=== PATIENT | female | born 1985 | race Two or more races ===

== ENCOUNTER 2024-04-29 17:00 | Emergency (ER) | payer OTHER ==
[~2024-04-29] VITALS: Ht 180.3 cm; Wt 97.5 kg
[2024-04-29 17:30] VITALS: BP 169/113; TEMP 99.4; O2SAT 98
[2024-04-29] MEDS: KETOROLAC TROMETHAMINE INJ 30 MG/ML VIAL IM ONE (18:00)
[2024-04-29] MEDS: GUAIFENESIN/D-METHORPHAN HB 5 ML UDC PO ONE (18:00)
[2024-04-29 18:47] LABS: PREGNANCY TEST URINE QUAL NEGATIVE (NEGATIVE)
[2024-04-29] MEDS ORDERED: GUAIFENESIN/CODEINE 10 ML UDC ONE (19:00)
[2024-04-29] MEDS ORDERED: KETOROLAC TROMETHAMINE INJ 30 MG/ML VIAL ONE (19:00)
[2024-04-29] MEDS ORDERED: GUAIFENESIN/D-METHORPHAN HB 5 ML UDC ONE (19:02)
[2024-04-29] MEDS ORDERED: AZIT500T4 PO (19:14)
[2024-04-29] MEDS ORDERED: GUAI1TBM19 PO (19:14)
== END 2024-04-29 19:43 | disposition home or self-care (01) ==
LOC: ER 17:25
DX: J40 Bronchitis, not specified as acute or chronic (principal); F17.200 Nicotine dependence, unspecified, uncomplicated; M54.9 Dorsalgia, unspecified; R53.83 Other fatigue; R07.9 Chest pain, unspecified; R06.00 Dyspnea, unspecified; Z20.822 Contact with and (suspected) exposure to COVID-19
CPT/HCPCS: 99284; 71045; 87426; 96372; 84703; J1885

== ENCOUNTER 2024-07-07 16:55 | Emergency (ER) | payer OTHER ==
[~2024-07-07] VITALS: Ht 180.3 cm; Wt 98.4 kg
[~2024-07-07 16:55] MED LIST: AZIT500T4 PO; GUAI1TBM19 PO
[2024-07-07] MEDS ORDERED: KETOROLAC TROMETHAMINE 15 MG/ML VIAL ONE (17:58)
[2024-07-07] MEDS: KETOROLAC TROMETHAMINE 15 MG/ML VIAL IM ONE (18:10)
[2024-07-07 18:40] VITALS: BP 123/74; TEMP 97.9; O2SAT 98
== END 2024-07-07 18:40 | disposition home or self-care (01) ==
LOC: ER 16:58
DX: S73.101A Unspecified sprain of right hip, initial encounter (principal); F17.200 Nicotine dependence, unspecified, uncomplicated; W01.0XXA Fall on same level from slipping, tripping and stumbling without subsequent striking against object, initial encounter; Y93.89 Activity, other specified; Y92.89 Other specified places as the place of occurrence of the external cause; Y99.8 Other external cause status
CPT/HCPCS: 99284; 96372; 72190; 73552; J1885

== ENCOUNTER 2025-02-26 20:00 | Emergency (ER) | payer OTHER ==
[~2025-02-26] VITALS: Ht 180.3 cm; Wt 106.1 kg
[2025-02-26] MEDS ORDERED: ACETAMINOPHEN ES 500 MG TABLET ONE (21:01)
[2025-02-26] MEDS ORDERED: IBUPROFEN 600 MG TABLET ONE (21:02)
[2025-02-26] MEDS: IBUPROFEN 600 MG TABLET PO ONE (21:05)
[2025-02-26] MEDS: ACETAMINOPHEN ES 500 MG TABLET PO ONE (21:05)
[2025-02-26] MEDS ORDERED: DICL100G34 TP (21:32)
[2025-02-26] MEDS ORDERED: IBUP-1490 PO (21:32)
[2025-02-26 21:54] VITALS: BP 144/94; TEMP 98.5; O2SAT 97
== END 2025-02-26 21:57 | disposition home or self-care (01) ==
LOC: ER 20:06
DX: M25.562 Pain in left knee (principal); F17.200 Nicotine dependence, unspecified, uncomplicated; W01.0XXA Fall on same level from slipping, tripping and stumbling without subsequent striking against object, initial encounter; Y93.89 Activity, other specified; Y92.512 Supermarket, store or market as the place of occurrence of the external cause; Y99.8 Other external cause status
CPT/HCPCS: 73564-TC